=== PATIENT | male | born 1975 | race Caucasian/White ===

== ENCOUNTER 2021-10-27 08:42 | Emergency (ER) | payer MEDICARE ==
[~2021-10-27] VITALS: Ht 185.4 cm; Wt 84.1 kg
[2021-10-27 08:54] VITALS: BP 144/96; TEMP 98.3
[2021-10-27 10:08] LABS: BASO % 0.6 % (0.0-2.0); EOS # 0.1 K/mm3 (0.0-0.7); GRAN # 4.5 K/mm3 (1.4-6.5); GRAN % 65.5 % (42.2-75.2); HEMATOCRIT 43.1 % (42.0-52.0); HEMOGLOBIN 14.4 g/dl (13.5-18.0); LYMPH # 1.7 K/mm3 (1.2-3.4); LYMPH % 24.3 % (20.0-51.0); MEAN CELL VOLUME 90 fl (80.0-100.0); MEAN CORPUSCULAR HEMOGLOBIN 30 pg (27-31); MEAN CORPUSCULAR HGB CONC 33 g/dl (33.0-37.0); MEAN PLATELET VOLUME 10.4 fl (7.4-10.4); MONO # 0.5 K/mm3 (0.1-0.6); MONO % 7.3 % (1.7-9.3); PLATELET COUNT 292 K/mm3 (130-400); RED BLOOD COUNT 4.77 M/mm3 (4.20-5.60); REDCELL DISTRIBUTION WIDTH-CV 12.9 % (11.5-14.5)
[2021-10-27 10:31] LABS: ALBUMIN 3.8 gm/dL (3.5-5.0); BILIRUBIN,TOTAL 0.6 mg/dL (0.2-1.2); CALCIUM 9.1 mg/dL (8.4-10.2); CREATININE, serum 0.83 mg/dL (0.72-1.25); POTASSIUM 3.5 mmol/L (3.5-4.5); TOTAL PROTEIN 7.3 gm/dL (6.2-8.1)
[2021-10-27 11:29] LABS: COLLECTION METHOD CLEAN CATCH
[2021-10-27 11:58] LABS: MUCOUS Present (NOT PRESENT); PH 7 (5-8); SQUAMOUS EPITHELIAL 0-2 /hpf (0-10); URINE APPEARANCE Hazy (CLEAR/HAZY); URINE BACTERIA None Seen /hpf (NONE SEEN); URINE BILIRUBIN Negative (NEGATIVE); URINE BLOOD 3+ (NEGATIVE); URINE COLOR Amber (YELLOW); URINE GLUCOSE Negative (NEGATIVE); URINE KETONE Negative (NEGATIVE); URINE LEUKOCYTE ESTERASE Negative (NEGATIVE); URINE NITRATE Negative (NEGATIVE); URINE PROTEIN(semi-quant) 2+ (NEGATIVE); URINE RBC >50 /hpf (0-2); URINE UROBILINOGEN Negative (NEGATIVE)
[2021-10-27 13:25] VITALS: PULSE 78
== END 2021-10-27 13:25 | disposition home or self-care (01) ==
LOC: COL.ER 08:42
PROVIDERS: Emergency Medicine
DX: R31.9 Hematuria, unspecified (principal); R33.9 Retention of urine, unspecified; Z87.891 Personal history of nicotine dependence

== ENCOUNTER 2021-10-29 04:12 | Observation (INO) | payer MEDICARE ==
[~2021-10-29] VITALS: Ht 185.4 cm; Wt 129.5 kg
[2021-10-29] VITALS (8 sets, daily range): BP systolic 125–139; BP diastolic 74–88; PULSE 56–78; TEMP 97.9
[2021-10-29] MEDS ORDERED: ZESTORETIC 12.51 TA1 PO (06:13)
[2021-10-29] MEDS ORDERED: ACTOS30 MG PO (06:13)
[2021-10-29] MEDS ORDERED: GLUCOPHAGE1000 MG PO (06:14)
[2021-10-29] MEDS ORDERED: AMARYL4 MG PO (06:14)
--- NOTE | 2021-10-29 10:06 | NUR ---
PT ARRIVED FROM PACU @ 2851. PT IS A&O X3, IS @ BEDSIDE. POST OP IVF INFUSING INTO RIGHT AC IV. PT DOES NOT HAVE A ARMANDO CATHETER, INSTRUCTED ON USING URINAL ET ASKING FOR HELP TO GET OUT OF BED, VERBALIZES UNDERSTANDING. PT ALSO INSTRUCTED ON DRINKING WATER, GIVEN JELLO TO EAT, DENIES NAUSEA. PT STATES THAT HE HAS PAIN IN HIS BACK THAT HE BELIEVES IS R/T LAYING IN BED.
--- NOTE | 2021-10-29 10:11 | NUR ---
PT DOES REQUEST DISCHARGE EDUCATION ET INSTRUCTIONS TO BE IN INDONESIAN.
[2021-10-29] MEDS ORDERED: PROSCAR 5MG5 MG PO (10:54)
[2021-10-29] MEDS ORDERED: CIPRO 500MG TA500 MG PO (10:54)
[2021-10-29] MEDS ORDERED: FLOMAX 0.40.4 MG/CAP PO (10:54)
--- NOTE | 2021-10-29 12:23 | NUR ---
SW met with patient to complete intake. Patient provides that he lives in [place] with his Danni [phone] whom has been appointed as his DPOA/HC. Patient does not utilize DME and is independent with ADLs. PCP is Dr. Zhou, pharmacy is [facility]. Patient provided that his plan is to return to his home [place] upon DC. MONO will continue to follow. DC plan: home
--- NOTE | 2021-10-29 12:51 | NUR ---
stopped by but nothing needed at this time.
--- NOTE | 2021-10-29 14:50 | NUR ---
PT DISCHARGED TO HOME WITH SPOUSE @ THIS TIME, AMBULATES TO PRIVATE VEHICLE WITH KRYSTYNA BERNAL. DISCHARGE EDUCATION ET INSTRUCTIONS GIVEN, PRINTED IN HUNGARIAN ET HAITIAN PER PT REQUEST, DENY FURTHER QUESTIONS. PT HAS URINATED X3, HAS BEEN YELLOW ET CLEAR EACH TIME. PT STATES THAT HE IS HAVING MILD BURNING ET PRESSURE WHILE URINATING BUT IS NOTHING LIKE THE PAIN HE HAD BEFORE SURGERY.
== END 2021-10-29 14:50 | disposition home or self-care (01) ==
LOC: COL.ER 04:12 → SURG 06:03
PROVIDERS: ADMIT Urology
DX: R31.0 Gross hematuria (principal); R33.9 Retention of urine, unspecified; E11.9 Type 2 diabetes mellitus without complications; Z79.84 Long term (current) use of oral hypoglycemic drugs
CPT/HCPCS: J0690; J1100; J2405; J2704; J3010; Q9967